=== PATIENT | female | born 1960 | race Caucasian/White ===

== ENCOUNTER 2016-10-25 19:27 | Emergency (ER) | payer BC ==
[~2016-10-25] VITALS: Ht 177.8 cm; Wt 94.0 kg
[~2016-10-25 19:27] MED LIST: BENZ1TAB7 PO; HAL2 PO; HYDR-3498 PO; LORA-444 PO; MV,C400T2 PO; OMEP20CA9 PO; VALA100057 PO; ZOLP10TA5 PO
[2016-10-25 19:35] VITALS: Ht 177.8 cm; Wt 94.0 kg
--- NOTE | 2016-10-25 21:10 | ERD ---
ER Documentation Chief Complaint Date/Time DATE: 10/25/16 TIME: 21:07 Chief Complaint chest pain 20 minutes ago,abd pain, painful urination x 3 days HPI Patient is a 56-year-old female who presents with gradual onset, constant, burning dysuria for 3 days. She also reports clear vaginal discharge that is slightly uncomfortable. She denies fever, vomiting, back pain. She reports having recent recurrent UTIs. She reports that while she was coming to the hospital she had a brief burning sensation in her mid chest that lasted for 5 seconds and spontaneously resolved. She denies prior episodes, denies shortness of breath. ROS All systems reviewed and are negative except as per history of present illness. Medications Home Meds Reported Medications Esomeprazole Mag Trihydrate (Nexium) 20 Mg Capsule.dr, 20 MG PO DAILY, #30 CAP 10/25/16 Oxycodone Hcl* (IR) (Oxycodone Hcl*) 30 Mg Tablet, 30 MG PO TID Y for PAIN, TAB 10/25/16 Losartan Potassium* (Losartan Potassium*) 25 Mg Tablet, 25 MG PO DAILY, TAB 10/25/16 Zolpidem Tartrate* (Zolpidem Tartrate*) 10 Mg Tablet, 10 MG PO QHS Y for INSOMNIA, #30 TAB 10/25/16 Benztropine Mesylate* (Benztropine Mesylate*) 2 Mg Tablet, 2 MG PO DAILY, TAB 10/25/16 Haloperidol* (Haldol*) 2 Mg Tab, 2 MG PO QHS, TAB 10/25/16 Discontinued Reported Medications Mv,Ca,Min/Fa/Herbal No.157 (Estroven Max Strength Caplet) 400 Mcg Tablet, 400 MCG PO HS 02/19/14 Omeprazole* (Prilosec*) 20 Mg Capsule.dr, 20 MG PO DAILY, CAP 02/19/14 Valacyclovir Hcl* (Valtrex*) 1,000 Mg Tablet, 1000 MG PO DAILY, TAB 02/19/14 Benztropine Mesylate* (Cogentin*) 1 Mg Tab, 2 MG PO DAILY, TAB 02/19/14 Haloperidol* (Haldol*) 2 Mg Tab, 2 MG PO DAILY, TAB 02/19/14 Zolpidem Tartrate* (Zolpidem Tartrate*) 10 Mg Tablet, 10 MG PO HS Y for INSOMNIA , TAB 02/19/14 Lorazepam* (Ativan*) 2 Mg Tablet, 2 MG PO DAILY Y for ANXIETY, TAB 02/19/14 Discontinued Scripts Hydrocodone Bit-Acetaminophen* ([place]*) 5-325 Mg Tab, 1 TAB PO Q6 Y for PAIN, # 15 TAB Prov:ADELINE MIRZA 05/20/15 Allergies Allergies: Coded Allergies: Sulfa (Sulfonamide Antibiotics) (Verified Allergy, Mild, 10/25/16) doxycycline (Unverified Allergy, Unknown, 10/25/16) PMhx/Soc Past medical history: GERD, psych NOS, sciatica, hypertension Past surgical history: Denies Social history: Denies tobacco or alcohol History of Surgery: No Anesthesia Reaction: No Hx Neurological Disorder: No Hx Respiratory Disorders: No Hx Cardiac Disorders: Yes (htn) Hx Psychiatric Problems: No Hx Miscellaneous Medical Probl: Yes (PEPTIC ULCER, sciatica in past) Hx Alcohol Use: No Hx Substance Use: No Hx Tobacco Use: No Smoking Status: Never smoker FmHx Family History: No coronary disease, No diabetes Physical Exam Vitals Vital Signs Date Time Temp Pulse Resp B/P Pulse Ox O2 Delivery O2 Flow Rate FiO2 10/25/16 22:43 97.8 87 18 155/96 100 Room Air 10/25/16 19:35 97.8 93 20 173/97 100 Physical Exam Const: Alert, no acute distress Head: Atraumatic Eyes: Normal Conjunctiva, no pallor, no icterus ENT: Normal External Ears, Nose and Mouth. Neck: Full range of motion..~ No meningismus. Resp: Clear to auscultation bilaterally, no wheezes, no rales Cardio: Regular rate and rhythm, no murmurs Abd: Soft, non tender, non distended. Normal bowel sounds [employer]: Normal vaginal mucosa, normal cervix, no lesions, normal secretions. No CMT. Skin: No petechiae or rashes Back: No midline or flank tenderness Ext: No cyanosis, or edema Neur: Awake and alert, cranial nerves II through XII intact bilaterally, strength and sensation full in 4 extremities. Psych: Normal Mood and Affect Results 24 hrs Laboratory Tests Test 10/25/16 20:30 Urine Color YELLOW Urine Clarity CLEAR Urine pH 5.0 Urine Specific [place] 1.028 Urine Ketones NEGATIVEmg/dL Urine Nitrite NEGATIVEmg/dL Urine Bilirubin NEGATIVEmg/dL Urine Urobilinogen NEGATIVEmg/dL Urine Leukocyte Esterase TRACELeu/ul Urine Microscopic RBC 1/HPF Urine Microscopic WBC 5/HPF Urine Hemoglobin NEGATIVEmg/dL Urine Glucose NEGATIVEmg/dL Urine Total Protein NEGATIVEmg/dl Procedures/MDM EKG read by me: Time 1937, rate 81 Rhythm: Normal sinus [place]: Normal Intervals: Normal ST-T waves: no ischemic changes Ectopy: No Q-waves: No Impression: No evidence of ischemia or arrhythmia MDM: Patient is a 56-year-old female who presents with complaint of dysuria for 3 days as well as clear vaginal discharge. She reports that she had a transient , 5 second episode of substernal chest pain radiating up into her anterior neck while she was in the ER. She has a nonischemic EKG and an unremarkable chest x- ray. I do not believe that further cardiac workup was warranted based upon a single episode of transient chest pain. Patient does have history of GERD, and there are features of her symptoms that are suggestive of GERD. UA did not show UTI, and pelvic exam and wet mount were unremarkable. I advised the patient to follow-up with your PMD and her TRANSFORMATION MANAGER in the next week, and to return to the ER for new or worsening symptoms. Departure Diagnosis: Primary Impression: Dysuria Additional Impression: GERD (gastroesophageal reflux disease) Esophagitis presence: esophagitis presence not specified Qualified Code: K21.9 - Gastroesophageal reflux disease, esophagitis presence not specified Condition: ANAID Samuel MD Oct 25, 2016 21:09
[2016-10-25] MEDS ORDERED: BENZ2TAB37 PO (21:26)
[2016-10-25] MEDS ORDERED: HAL2 PO (21:26)
[2016-10-25] MEDS ORDERED: ZOLP10TA5 PO (21:27)
[2016-10-25] MEDS ORDERED: LOSA25TA5 PO (21:27)
[2016-10-25] MEDS ORDERED: OXYC30TA PO (21:28)
[2016-10-25] MEDS ORDERED: ESOM20CA PO (21:29)
[2016-10-25 21:36] LABS: ADD UMIC YES; UR ASCORBIC ACID 40 mg/dL (NEGATIVE); UR BILIRUBIN (Dip) NEGATIVE (NEGATIVE); UR BLOOD (Dip) NEGATIVE (NEGATIVE); UR CLARITY CLEAR (CLEAR); UR COLOR YELLOW (YELLOW); UR GLUCOSE (Dip) NEGATIVE (NEGATIVE); UR KETONES (Dip) NEGATIVE (NEGATIVE); UR LEUKOCYTE ESTERASE (Dip) TRACE Leu/ul (NEGATIVE); UR NITRITE (Dip) NEGATIVE (NEGATIVE); UR RBC 1 /HPF (0-5); UR SPECIFIC GRAVITY (Dip) 1.028 (1.003-1.030); UR TOTAL PROTEIN (Dip) NEGATIVE (NEGATIVE); UR UROBILINOGEN (Dip) NEGATIVE (NEGATIVE)
--- NOTE | 2016-10-25 22:35 | RADRPT ---
PROCEDURE: CHEST - 1 VIEW CLINICAL INDICATION: 56-year-old female with chest pain. TECHNIQUE: A single frontal AP upright portable view of the chest was performed. The images were reviewed on a PACS workstation. COMPARISON: Chest x-ray February 19, 2014. FINDINGS: The cardiomediastinal silhouette has a normal appearance. There is no evidence for an infiltrate. There is no evidence for congestive heart failure. There is no evidence for pneumothorax. The osseou s structures are intact. IMPRESSION: No evidence for active cardiopulmonary disease. .Ender Echavarria MD, MD Date Time Electronically viewed and signed by .Ender Echavarria MD, on 10/25/2016 22:35 .M/
[2016-10-25 22:43] VITALS: BP 155/96; PULSE 87; RESP 18; TEMP 97.8
== END 2016-10-25 23:15 | disposition home or self-care (01) ==
LOC: E/R 19:27
DX: R30.0 Dysuria (principal); K21.9 Gastro-esophageal reflux disease without esophagitis; I10 Essential (primary) hypertension
CPT/HCPCS: 71010; 81001; 87210; 93005